=== PATIENT | female | born 1990 | race Caucasian/White ===

== ENCOUNTER 2016-07-30 16:02 | Outpatient (CLI) | payer MEDICAID ==
[~2016-07-30] VITALS: Ht 167.6 cm; Wt 110.0 kg
[~2016-07-30 16:02] MED LIST: ALLEGRA 60MG TA60 MG PO; DOXYCYCLINE 10100 MG PO; EPIPEN1 MG/ML MR; GOOD SENSE SLEE25 M1 PO; PHENERGAN 25 TA25 MG PO; PHENERGAN W/CO120 ML PO; PREDNISONE20 MG PO; PRENATAL MVI PO; PROBIOTIC FORMU1 CAP PO; TYLENOL W/COD1 UDTAB PO; VENTOLIN0.09 MG IH; VITAMIN B-6100 MG PO; ZYRTEC 10MG10 MG PO; ZYRTEC5 MG PO
[2016-07-30 16:12] VITALS: BP 141/73; PULSE 96; TEMP 98.1
[2016-07-30 17:03] LABS: PH 6 (5-8); URINE APPEARANCE Hazy; URINE BACTERIA Rare /hpf; URINE BILIRUBIN Negative (NEGATIVE); URINE BLOOD Negative (NEGATIVE); URINE COLOR Yellow; URINE GLUCOSE Negative (NEGATIVE); URINE KETONE Negative (NEGATIVE); URINE UROBILINOGEN Negative (NEGATIVE)
[2016-07-30 17:10] VITALS: BP 119/67; PULSE 96
[2016-07-30 17:45] VITALS: BP 119/59; PULSE 90
== END 2016-07-30 18:42 | disposition home or self-care (01) ==
LOC: LDRO 16:02
PROVIDERS: Obstetrics & Gynecology
DX: O26.92 Pregnancy related conditions, unspecified, second trimester (principal); M54.5 Low back pain; Z3A.26 26 weeks gestation of pregnancy
CPT/HCPCS: J2550; J7120

== ENCOUNTER → 2016-08-07 | Outpatient (CLI) | payer OTHER ==
[~2016-08-07] MED LIST changes: +IBU600 MG PO; +PERCOCET 325 MG1 TA2 PO; +TYLENOL 500MG500 MG PO
== END ==
LOC: COL.RAD 13:15
DX: M79.671 Pain in right foot (principal)

== ENCOUNTER → 2016-08-21 | Outpatient (CLI) | payer OTHER | LOC: COL.RAD 11:00 | DX: M79.671 Pain in right foot (principal) ==

== ENCOUNTER 2016-09-02 09:29 | Emergency (ER) | payer MEDICAID ==
[~2016-09-02] VITALS: Ht 167.6 cm; Wt 109.1 kg
[~2016-09-02 09:29] MED LIST changes: -IBU600 MG PO; -PERCOCET 325 MG1 TA2 PO; -TYLENOL 500MG500 MG PO
[2016-09-02 09:32] VITALS: TEMP 98
[2016-09-02 10:35] LABS: PH 7 (5-8); SQUAMOUS EPITHELIAL 0-2 /hpf; URINE APPEARANCE Clear; URINE BACTERIA Rare /hpf; URINE BILIRUBIN Negative (NEGATIVE); URINE BLOOD Negative (NEGATIVE); URINE COLOR Straw; URINE GLUCOSE Negative (NEGATIVE); URINE KETONE Negative (NEGATIVE); URINE RBC 0-2 /hpf; URINE UROBILINOGEN Negative (NEGATIVE); URINE WBC 0-2 /hpf
[2016-09-02 11:33] VITALS: BP 102/57; PULSE 90
== END 2016-09-02 11:33 | disposition home or self-care (01) ==
LOC: COL.ER 09:29
PROVIDERS: Physician Assistant
DX: O99.89 Other specified diseases and conditions complicating pregnancy, childbirth and the puerperium (principal); S39.012A Strain of muscle, fascia and tendon of lower back, initial encounter; M79.671 Pain in right foot; G89.29 Other chronic pain; Z3A.31 31 weeks gestation of pregnancy; W01.198A Fall on same level from slipping, tripping and stumbling with subsequent striking against other object, initial encounter; Y92.238 Other place in hospital as the place of occurrence of the external cause

== ENCOUNTER 2016-10-19 23:29 | Outpatient (CLI) | payer BC, MEDICAID ==
[~2016-10-19] VITALS: Ht 167.6 cm; Wt 120.5 kg
[2016-10-19 23:59] VITALS: BP 128/73; PULSE 88; TEMP 97.5
[2016-10-20] VITALS: BP 128/73; PULSE 88; TEMP 97.5
[2016-10-20] MEDS ORDERED: TYLENOL 500MG500 MG PO (00:06)
== END 2016-10-20 00:47 | disposition home or self-care (01) ==
LOC: LDRO 23:29
DX: Z03.71 Encounter for suspected problem with amniotic cavity and membrane ruled out (principal)

== ENCOUNTER 2016-10-21 00:08 | Outpatient (CLI) | payer MEDICAID ==
[~2016-10-21] VITALS: Ht 167.6 cm; Wt 120.9 kg
[~2016-10-21 00:08] MED LIST changes: +TYLENOL 500MG500 MG PO
[2016-10-21 00:38] VITALS: BP 122/64; PULSE 90; TEMP 97.7
[2016-10-21 01:00] VITALS: BP 122/64; PULSE 90; TEMP 97.7
[2016-10-21 02:30] VITALS: BP 114/66; PULSE 84
== END 2016-10-21 03:06 | disposition home or self-care (01) ==
LOC: LDRO 00:08
DX: O47.1 False labor at or after 37 completed weeks of gestation (principal); Z3A.38 38 weeks gestation of pregnancy

== ENCOUNTER 2016-10-22 07:53 | Outpatient (CLI) | payer MEDICAID ==
[~2016-10-22] VITALS: Ht 167.6 cm; Wt 120.0 kg
[2016-10-22 08:07] VITALS: BP 115/67; PULSE 105; TEMP 97.4
== END 2016-10-22 09:30 | disposition home or self-care (01) ==
LOC: LDRO 07:53
DX: O47.9 False labor, unspecified (principal)

== ENCOUNTER 2016-10-28 07:00 | Inpatient (IN) | payer BC, MEDICAID ==
[2016-10-28] VITALS (60 sets, daily range): BP systolic 97–137; BP diastolic 43–86; PULSE 65–103; TEMP 97.6–98.6
[~2016-10-28] VITALS: Ht 165.1 cm; Wt 119.1 kg
[2016-10-28 08:18] LABS: BASO % 0.3 % (0.0-2.0); EOS # 0.2 (0.0-0.7); GRAN # 5.8 (1.4-6.5); GRAN % 65.3 % (42.2-75.2); HEMATOCRIT 39.7 % (37.0-47.0); HEMOGLOBIN 13.8 g/dl (12.5-16.0); LYMPH % 22.5 % (20.0-51.0); MEAN CELL VOLUME 90 fl (80.0-100.0); MEAN CORPUSCULAR HEMOGLOBIN 31 pg (27.0-31.0); MEAN CORPUSCULAR HGB CONC 35 g/dl (33.0-37.0); MEAN PLATELET VOLUME 9.6 fl (7.4-10.4); MONO # 0.8 (0.1-0.6); MONO % 9.3 % (1.7-9.3); PLATELET COUNT 230 K/mm3 (130-400); RED BLOOD COUNT 4.42 M/mm3 (4.10-5.30); REDCELL DISTRIBUTION WIDTH-CV 12.6 % (11.5-14.5); WHITE BLOOD COUNT 8.8 K/mm3 (4.8-10.8)
[2016-10-29 03:45] VITALS: BP 118/53; PULSE 76; TEMP 98.1
[2016-10-29 08:30] VITALS: BP 97/43; PULSE 83; TEMP 98.1
[2016-10-29 11:03] LABS: BASO % 0.4 % (0.0-2.0); EOS # 0.1 (0.0-0.7); EOS % 1.3 % (0-4.0); GRAN # 7.2 (1.4-6.5); GRAN % 70.2 % (42.2-75.2); LYMPH # 2.2 (1.2-3.4); LYMPH % 21.3 % (20.0-51.0); MEAN CELL VOLUME 92 fl (80.0-100.0); MEAN CORPUSCULAR HGB CONC 34 g/dl (33.0-37.0); MEAN PLATELET VOLUME 9.4 fl (7.4-10.4); MONO # 0.6 (0.1-0.6); MONO % 6.2 % (1.7-9.3); PLATELET COUNT 186 K/mm3 (130-400); REDCELL DISTRIBUTION WIDTH-CV 12.9 % (11.5-14.5); WHITE BLOOD COUNT 10.2 K/mm3 (4.8-10.8)
[2016-10-29 11:16] LABS: HEMATOCRIT 32.2 % (37.0-47.0); MEAN CORPUSCULAR HEMOGLOBIN 31 pg (27.0-31.0)
[2016-10-29 16:00] VITALS: BP 107/63; PULSE 87; TEMP 98.1
[2016-10-29 22:28] VITALS: BP 119/65; PULSE 98; TEMP 98.2
[2016-10-30 08:50] VITALS: BP 104/56; PULSE 83; TEMP 97.9
[2016-10-30] MEDS ORDERED: IBU600 MG PO (09:37)
[2016-10-30] MEDS ORDERED: PERCOCET 325 MG1 TA2 PO (09:37)
[2016-10-30 17:00] VITALS: BP 119/62; PULSE 89; TEMP 98
[2016-10-30 21:00] VITALS: BP 113/54; PULSE 90; TEMP 98.2
[2016-10-31 07:15] VITALS: BP 128/63; PULSE 77; TEMP 98
== END 2016-10-31 13:30 | disposition home or self-care (01) | DRG 766 ==
LOC: OB 07:00 → LDR 07:00 → OB 20:54
PROVIDERS: Obstetrics & Gynecology
PROC: 10D00Z1 Extraction of Products of Conception, Low, Open Approach (ICD-10-PCS; principal; 2016-10-28)
PROC: 3E033VJ Introduction of Other Hormone into Peripheral Vein, Percutaneous Approach (ICD-10-PCS; 2016-10-28)
DX: O36.63X0 Maternal care for excessive fetal growth, third trimester, not applicable or unspecified (principal); O76 Abnormality in fetal heart rate and rhythm complicating labor and delivery; O69.81X0 Labor and delivery complicated by cord around neck, without compression, not applicable or unspecified; O62.0 Primary inadequate contractions; O99.824 Streptococcus B carrier state complicating childbirth; Z3A.39 39 weeks gestation of pregnancy; Z37.0 Single live birth
CPT/HCPCS: J0690; J1885; J2270; J2405; J2590; J7120

== ENCOUNTER 2017-09-15 15:47 | Emergency (ER) | payer BC ==
[~2017-09-15] VITALS: Ht 165.1 cm; Wt 104.5 kg
[~2017-09-15 15:47] MED LIST changes: +IBU600 MG PO; +PERCOCET 325 MG1 TA2 PO
[2017-09-15 15:52] VITALS: BP 139/77; TEMP 99.2
[2017-09-15 18:12] VITALS: PULSE 96
== END 2017-09-15 18:13 | disposition home or self-care (01) ==
LOC: COL.ER 15:47
DX: J06.9 Acute upper respiratory infection, unspecified (principal); Z90.89 Acquired absence of other organs; Z88.0 Allergy status to penicillin; Z88.2 Allergy status to sulfonamides

== ENCOUNTER 2017-11-05 19:16 | Emergency (ER) | payer BC ==
[~2017-11-05] VITALS: Ht 165.1 cm; Wt 104.5 kg
[2017-11-05 19:28] VITALS: TEMP 98.1
[2017-11-05 20:22] LABS: COLLECTION METHOD CLEAN CATCH
[2017-11-05 20:28] LABS: PH 6 (5-8); URINE APPEARANCE Clear; URINE BACTERIA Rare /hpf; URINE BILIRUBIN Negative (NEGATIVE); URINE BLOOD 3+ (NEGATIVE); URINE COLOR Straw; URINE GLUCOSE Negative (NEGATIVE); URINE KETONE Negative (NEGATIVE); URINE LEUKOCYTE ESTERASE Negative (NEGATIVE); URINE NITRATE Negative (NEGATIVE); URINE PROTEIN(semi-quant) Negative (NEGATIVE); URINE RBC 0-2 /hpf; URINE UROBILINOGEN Negative (NEGATIVE)
[2017-11-05 20:33] LABS: HEMATOCRIT 41.5 % (37.0-47.0); HEMOGLOBIN 14.4 g/dl (12.5-16.0); MEAN CELL VOLUME 85 fl (80.0-100.0); MEAN CORPUSCULAR HEMOGLOBIN 29 pg (27.0-31.0); MEAN CORPUSCULAR HGB CONC 35 g/dl (33.0-37.0); MEAN PLATELET VOLUME 8.3 fl (7.4-10.4); PLATELET COUNT 197 K/mm3 (130-400); RED BLOOD COUNT 4.91 M/mm3 (4.10-5.30)
[2017-11-05 20:49] LABS: ALBUMIN 3.7 gm/dL (3.5-5.0); BILIRUBIN,TOTAL 0.4 mg/dL (0.0-1.0); C-REACTIVE PROTEIN 1.7 mg/dL (0.0-0.9); CALCIUM 8.1 mg/dL (8.4-10.2); CREATININE, serum 0.6 mg/dL (0.52-1.25); POTASSIUM 3.9 mmol/L (3.4-5.0); TOTAL PROTEIN 7.6 gm/dL (6.4-8.2)
[2017-11-05 21:00] LABS: BAND 5 % (0-10); BASOPHIL 1 % (0-2); EOSINOPHIL 2 % (0-4); LYMPHOCYTE 23 % (20.0-51.0); NEUTROPHILS 65 % (42.0-75.2)
[2017-11-05 21:01] LABS: PLATELET ESTIMATE NORMAL (NORMAL)
[2017-11-05] MEDS ORDERED: NORCO 325 MG-51 TAB PO (21:30)
[2017-11-05 21:41] VITALS: BP 104/64; PULSE 84
== END 2017-11-05 21:46 | disposition home or self-care (01) ==
LOC: COL.ER 19:16
PROVIDERS: Emergency Medicine
DX: N94.6 Dysmenorrhea, unspecified (principal); Z98.51 Tubal ligation status; Z90.89 Acquired absence of other organs; Z98.890 Other specified postprocedural states
CPT/HCPCS: J1885; J7030

== ENCOUNTER 2018-02-08 20:19 | Emergency (ER) | payer BC, MEDICAID ==
[~2018-02-08] VITALS: Ht 162.6 cm; Wt 100.0 kg
[~2018-02-08 20:19] MED LIST changes: +NORCO 325 MG-51 TAB PO
[2018-02-08 20:22] VITALS: TEMP 98.4
[2018-02-08 22:02] LABS: BASO # 0.1 (0.0-0.2); BASO % 0.6 % (0.0-2.0); EOS # 0.4 (0.0-0.7); EOS % 2.9 % (0-4.0); GRAN # 9.4 (1.4-6.5); GRAN % 75.7 % (42.2-75.2); HEMATOCRIT 41.7 % (37.0-47.0); HEMOGLOBIN 14.4 g/dl (12.5-16.0); LYMPH # 1.8 (1.2-3.4); LYMPH % 14.2 % (20.0-51.0); MEAN CELL VOLUME 86 fl (80.0-100.0); MEAN CORPUSCULAR HEMOGLOBIN 30 pg (27.0-31.0); MEAN CORPUSCULAR HGB CONC 35 g/dl (33.0-37.0); MONO # 0.8 (0.1-0.6); MONO % 6.3 % (1.7-9.3); PLATELET COUNT 263 K/mm3 (130-400); RED BLOOD COUNT 4.86 M/mm3 (4.10-5.30); REDCELL DISTRIBUTION WIDTH-CV 12.7 % (11.5-14.5)
[2018-02-08 22:45] LABS: COLLECTION METHOD CLEAN CATCH
[2018-02-08 22:50] LABS: PH 8 (5-8); SQUAMOUS EPITHELIAL 0-2 /hpf; URINE APPEARANCE Clear; URINE BACTERIA Rare /hpf; URINE BILIRUBIN Negative (NEGATIVE); URINE BLOOD Negative (NEGATIVE); URINE COLOR Yellow; URINE GLUCOSE Negative (NEGATIVE); URINE KETONE 2+ (NEGATIVE); URINE LEUKOCYTE ESTERASE Negative (NEGATIVE); URINE NITRATE Negative (NEGATIVE); URINE PROTEIN(semi-quant) Negative (NEGATIVE); URINE RBC 0-2 /hpf; URINE UROBILINOGEN Negative (NEGATIVE)
[2018-02-08 22:55] LABS: BILIRUBIN,TOTAL 0.5 mg/dL (0.0-1.0); CALCIUM 9.1 mg/dL (8.4-10.2); CREATININE, serum 0.67 mg/dL (0.52-1.25); POTASSIUM 3.5 mmol/L (3.4-5.0); TOTAL PROTEIN 7.5 gm/dL (6.4-8.2)
[2018-02-09 00:36] VITALS: BP 118/68; PULSE 83
== END 2018-02-09 00:34 | disposition home or self-care (01) ==
LOC: COL.ER 20:19
PROVIDERS: Emergency Medicine; Nurse Practitioner Primary Care
DX: J06.9 Acute upper respiratory infection, unspecified (principal); Z90.89 Acquired absence of other organs; Z98.890 Other specified postprocedural states
CPT/HCPCS: J1885; J7030

== ENCOUNTER 2018-05-16 14:59 | Emergency (ER) | payer BC, MEDICAID ==
[~2018-05-16] VITALS: Ht 162.6 cm; Wt 106.8 kg
[2018-05-16 15:05] VITALS: BP 110/57; TEMP 97.7
[2018-05-16 16:32] VITALS: PULSE 82
== END 2018-05-16 16:32 | disposition home or self-care (01) ==
LOC: COL.ER 14:59
DX: M54.2 Cervicalgia (principal); M54.6 Pain in thoracic spine; Z88.0 Allergy status to penicillin; Z90.89 Acquired absence of other organs; Z88.2 Allergy status to sulfonamides; Z88.1 Allergy status to other antibiotic agents; Z98.890 Other specified postprocedural states
CPT/HCPCS: J1885; J2360

== ENCOUNTER 2018-06-09 18:45 | Emergency (ER) | payer BC, MEDICAID ==
[~2018-06-09] VITALS: Ht 165.1 cm; Wt 104.5 kg
[2018-06-09 19:18] VITALS: BP 124/63; TEMP 98.4
[2018-06-09 20:25] LABS: COLLECTION METHOD CLEAN CATCH
[2018-06-09 20:29] LABS: BASO # 0.1 (0.0-0.2); BASO % 0.7 % (0.0-2.0); EOS # 0.7 (0.0-0.7); EOS % 6.4 % (0-4.0); GRAN # 6.1 (1.4-6.5); GRAN % 56.9 % (42.2-75.2); HEMATOCRIT 40.5 % (37.0-47.0); HEMOGLOBIN 13.9 g/dl (12.5-16.0); LYMPH # 3.1 (1.2-3.4); LYMPH % 29.2 % (20.0-51.0); MEAN CELL VOLUME 87 fl (80.0-100.0); MEAN CORPUSCULAR HEMOGLOBIN 30 pg (27.0-31.0); MEAN CORPUSCULAR HGB CONC 34 g/dl (33.0-37.0); MEAN PLATELET VOLUME 8.8 fl (7.4-10.4); MONO # 0.7 (0.1-0.6); MONO % 6.6 % (1.7-9.3); PLATELET COUNT 280 K/mm3 (130-400); RED BLOOD COUNT 4.68 M/mm3 (4.10-5.30); REDCELL DISTRIBUTION WIDTH-CV 12.4 % (11.5-14.5)
[2018-06-09 20:32] LABS: MUCOUS Present /lpf; PH 6 (5-8); SQUAMOUS EPITHELIAL 0-2 /hpf; URINE APPEARANCE Clear; URINE BACTERIA None Seen /hpf; URINE BILIRUBIN Negative (NEGATIVE); URINE BLOOD 3+ (NEGATIVE); URINE COLOR Yellow; URINE GLUCOSE Negative (NEGATIVE); URINE KETONE Negative (NEGATIVE); URINE LEUKOCYTE ESTERASE Negative (NEGATIVE); URINE NITRATE Negative (NEGATIVE); URINE PROTEIN(semi-quant) Negative (NEGATIVE); URINE RBC 20-50 /hpf; URINE UROBILINOGEN Negative (NEGATIVE)
[2018-06-09 20:41] LABS: ALBUMIN 3.8 gm/dL (3.5-5.0); BILIRUBIN,TOTAL 0.3 mg/dL (0.0-1.0); CREATININE, serum 0.57 mg/dL (0.52-1.25); POTASSIUM 4.1 mmol/L (3.4-5.0); TOTAL PROTEIN 7.1 gm/dL (6.4-8.2)
[2018-06-09 21:45] VITALS: PULSE 101
== END 2018-06-09 21:45 | disposition home or self-care (01) ==
LOC: COL.ER 18:45
PROVIDERS: Family Medicine
DX: B34.9 Viral infection, unspecified (principal)
CPT/HCPCS: J2405; J7030

== ENCOUNTER 2018-07-27 16:19 | Emergency (ER) | payer BC, MEDICAID ==
[~2018-07-27] VITALS: Ht 165.1 cm; Wt 106.4 kg
[2018-07-27 16:27] VITALS: PULSE 95; TEMP 97.9
[2018-07-27] MEDS ORDERED: ZYRTEC5 MG (17:13)
[2018-07-27 17:34] LABS: BASO # 0.1 (0.0-0.2); BASO % 0.5 % (0.0-2.0); EOS # 0.6 (0.0-0.7); EOS % 5.9 % (0-4.0); GRAN % 70.7 % (42.2-75.2); HEMATOCRIT 39.9 % (37.0-47.0); HEMOGLOBIN 13.6 g/dl (12.5-16.0); LYMPH # 1.6 (1.2-3.4); LYMPH % 15.8 % (20.0-51.0); MEAN CELL VOLUME 87 fl (80.0-100.0); MEAN CORPUSCULAR HEMOGLOBIN 30 pg (27.0-31.0); MEAN CORPUSCULAR HGB CONC 34 g/dl (33.0-37.0); MEAN PLATELET VOLUME 9.6 fl (7.4-10.4); MONO # 0.7 (0.1-0.6); MONO % 6.7 % (1.7-9.3); PLATELET COUNT 241 K/mm3 (130-400); RED BLOOD COUNT 4.58 M/mm3 (4.10-5.30); REDCELL DISTRIBUTION WIDTH-CV 12.8 % (11.5-14.5)
[2018-07-27 18:19] LABS: ALBUMIN 3.9 gm/dL (3.5-5.0); BILIRUBIN,TOTAL 0.3 mg/dL (0.0-1.0); C-REACTIVE PROTEIN 0.7 mg/dL (0.0-0.9); CALCIUM 8.6 mg/dL (8.4-10.2); CREATININE, serum 0.58 mg/dL (0.52-1.25); POTASSIUM 3.7 mmol/L (3.4-5.0); TOTAL PROTEIN 7.1 gm/dL (6.4-8.2)
[2018-07-27] MEDS ORDERED: ZOFRAN ODT4 MG PO (18:36)
[2018-07-27] MEDS ORDERED: NORCO 325 MG-51 TAB PO (18:36)
[2018-07-27 19:15] VITALS: BP 94/63
== END 2018-07-27 19:15 | disposition home or self-care (01) ==
LOC: COL.ER 16:19
PROVIDERS: Emergency Medicine
DX: R10.84 Generalized abdominal pain (principal); R11.0 Nausea; Z90.89 Acquired absence of other organs; Z98.890 Other specified postprocedural states
CPT/HCPCS: J2405; J7030

== ENCOUNTER 2019-02-12 13:52 | Emergency (ER) | payer MEDICAID ==
[~2019-02-12] VITALS: Ht 167.6 cm; Wt 114.1 kg
[~2019-02-12 13:52] MED LIST changes: +ZOFRAN ODT4 MG PO; +ZYRTEC5 MG
[2019-02-12 14:27] VITALS: BP 133/84; TEMP 97.7
[2019-02-12 16:29] LABS: BASO # 0.1 (0.0-0.2); BASO % 0.6 % (0.0-2.0); EOS # 0.6 (0.0-0.7); EOS % 5.1 % (0-4.0); GRAN % 71.1 % (42.2-75.2); HEMATOCRIT 43.3 % (37.0-47.0); HEMOGLOBIN 14.8 g/dl (12.5-16.0); LYMPH # 1.9 (1.2-3.4); LYMPH % 17.1 % (20.0-51.0); MEAN CELL VOLUME 88 fl (80.0-100.0); MEAN CORPUSCULAR HEMOGLOBIN 30 pg (27.0-31.0); MEAN CORPUSCULAR HGB CONC 34 g/dl (33.0-37.0); MEAN PLATELET VOLUME 8.8 fl (7.4-10.4); MONO # 0.6 (0.1-0.6); MONO % 5.7 % (1.7-9.3); PLATELET COUNT 264 K/mm3 (130-400)
[2019-02-12 16:39] LABS: ALBUMIN 4.1 gm/dL (3.5-5.0); BILIRUBIN,TOTAL 0.4 mg/dL (0.0-1.0); CALCIUM 9.1 mg/dL (8.4-10.2); CREATININE, serum 0.61 (0.52-1.25); POTASSIUM 3.9 mmol/L (3.4-5.0); TOTAL PROTEIN 7.7 gm/dL (6.4-8.2)
[2019-02-12 16:54] LABS: COLLECTION METHOD CLEAN CATCH
[2019-02-12 16:59] LABS: MUCOUS Present /lpf; PH 5 (5-8); URINE APPEARANCE Clear; URINE BACTERIA None Seen /hpf; URINE BILIRUBIN Negative (NEGATIVE); URINE BLOOD Negative (NEGATIVE); URINE COLOR Yellow; URINE GLUCOSE Negative (NEGATIVE); URINE KETONE Negative (NEGATIVE); URINE LEUKOCYTE ESTERASE Negative (NEGATIVE); URINE NITRATE Negative (NEGATIVE); URINE PROTEIN(semi-quant) Negative (NEGATIVE); URINE RBC 0-2 /hpf; URINE UROBILINOGEN Negative (NEGATIVE)
[2019-02-12] MEDS ORDERED: ZOFRAN 4MG T4 MG/TAB PO (18:03)
[2019-02-12 18:31] VITALS: PULSE 80
== END 2019-02-12 18:32 | disposition home or self-care (01) ==
LOC: COL.ER 13:52
PROVIDERS: Physician Assistant
DX: O21.9 Vomiting of pregnancy, unspecified (principal); O99.281 Endocrine, nutritional and metabolic diseases complicating pregnancy, first trimester; E86.0 Dehydration; Z3A.01 Less than 8 weeks gestation of pregnancy
CPT/HCPCS: J2405; J7030

== ENCOUNTER 2019-02-16 00:18 | Emergency (ER) | payer MEDICAID ==
[~2019-02-16] VITALS: Ht 167.6 cm; Wt 113.6 kg
[~2019-02-16 00:18] MED LIST changes: +ZOFRAN 4MG T4 MG/TAB PO
[2019-02-16 00:21] VITALS: BP 121/70; TEMP 97.6
[2019-02-16 00:57] LABS: BASO # 0.1 (0.0-0.2); BASO % 0.6 % (0.0-2.0); EOS # 0.6 (0.0-0.7); EOS % 5.5 % (0-4.0); GRAN # 7.9 (1.4-6.5); GRAN % 68.7 % (42.2-75.2); HEMATOCRIT 42.1 % (37.0-47.0); HEMOGLOBIN 14.3 g/dl (12.5-16.0); LYMPH # 2.1 (1.2-3.4); LYMPH % 18.4 % (20.0-51.0); MEAN CELL VOLUME 89 fl (80.0-100.0); MEAN CORPUSCULAR HEMOGLOBIN 30 pg (27.0-31.0); MEAN CORPUSCULAR HGB CONC 34 g/dl (33.0-37.0); MEAN PLATELET VOLUME 8.9 fl (7.4-10.4); MONO # 0.7 (0.1-0.6); MONO % 6.3 % (1.7-9.3); PLATELET COUNT 265 K/mm3 (130-400); RED BLOOD COUNT 4.72 M/mm3 (4.10-5.30); REDCELL DISTRIBUTION WIDTH-CV 12.9 % (11.5-14.5)
[2019-02-16 01:11] LABS: ALANINE AMINOTRANSFERASE < 6 U/L (9-52); ALBUMIN 4.3 gm/dL (3.5-5.0); ALKALINE PHOSPHATASE 49 U/L (50-136); ANION GAP 12 mmol/L (7-16); AST,SGOT 19 U/L (15-37); BILIRUBIN,TOTAL 0.2 mg/dL (0.0-1.0); BLOOD UREA NITROGEN 10 mg/dL (7-17); CALCIUM 9.3 mg/dL (8.4-10.2); CARBON DIOXIDE 25 mmol/L (22-30); CHLORIDE 101 mmol/L (98-107); CREATININE, serum 0.59 (0.52-1.25); GLUCOSE 75 mg/dL (74-106); POTASSIUM 3.7 mmol/L (3.4-5.0); SODIUM 138 mmol/L (137-145)
[2019-02-16 01:30] LABS: COLLECTION METHOD CLEAN CATCH
[2019-02-16] MEDS ORDERED: PEPCID 20MG TAB20 MG PO (01:30)
[2019-02-16] MEDS ORDERED: PHENERGAN 25 TA25 MG PO (01:30)
[2019-02-16 01:35] LABS: PH 6 (5-8); SQUAMOUS EPITHELIAL 0-2 /hpf; URINE APPEARANCE Clear; URINE BACTERIA None Seen /hpf; URINE BILIRUBIN Negative (NEGATIVE); URINE BLOOD Negative (NEGATIVE); URINE COLOR Straw; URINE GLUCOSE Negative (NEGATIVE); URINE KETONE Negative (NEGATIVE); URINE LEUKOCYTE ESTERASE Negative (NEGATIVE); URINE NITRATE Negative (NEGATIVE); URINE PROTEIN(semi-quant) Negative (NEGATIVE); URINE RBC 0-2 /hpf; URINE UROBILINOGEN Negative (NEGATIVE)
[2019-02-16 02:19] LABS: HCG,QUANTITATIVE 86973 mIU/mL (0-5)
[2019-02-16 02:34] VITALS: PULSE 77
[2019-02-17] MEDS ORDERED: BONJESTA ER 201 EACH PO (13:44)
[2019-02-17] MEDS ORDERED: PHENERGAN25 MG RC (16:07)
== END 2019-02-16 02:34 | disposition home or self-care (01) ==
LOC: COL.ER 00:18
PROVIDERS: Emergency Medicine
DX: O99.611 Diseases of the digestive system complicating pregnancy, first trimester (principal); K21.9 Gastro-esophageal reflux disease without esophagitis; O21.9 Vomiting of pregnancy, unspecified; Z90.49 Acquired absence of other specified parts of digestive tract; Z3A.08 8 weeks gestation of pregnancy
CPT/HCPCS: J2550; J7030

== ENCOUNTER 2019-02-17 13:18 | Emergency (ER) | payer MEDICAID ==
[~2019-02-17] VITALS: Ht 167.6 cm; Wt 113.6 kg
[~2019-02-17 13:18] MED LIST changes: +PEPCID 20MG TAB20 MG PO
[2019-02-17 13:28] VITALS: BP 137/76; TEMP 97.3
[2019-02-17] MEDS ORDERED: BONJESTA ER 201 EACH PO (13:44)
[2019-02-17 14:43] LABS: COLLECTION METHOD CLEAN CATCH
[2019-02-17 15:09] LABS: URINE BACTERIA Rare /hpf; URINE RBC 0-2 /hpf
[2019-02-17 15:16] LABS: MUCOUS Present /lpf; PH 9 (5-8); URINE APPEARANCE Clear; URINE BILIRUBIN Negative (NEGATIVE); URINE BLOOD Negative (NEGATIVE); URINE COLOR Yellow; URINE GLUCOSE Negative (NEGATIVE); URINE KETONE 1+ (NEGATIVE); URINE LEUKOCYTE ESTERASE Negative (NEGATIVE); URINE NITRATE Negative (NEGATIVE); URINE PROTEIN(semi-quant) Negative (NEGATIVE); URINE UROBILINOGEN Negative (NEGATIVE)
[2019-02-17] MEDS ORDERED: PHENERGAN25 MG RC (16:07)
[2019-02-17 16:39] VITALS: PULSE 74
== END 2019-02-17 16:31 | disposition home or self-care (01) ==
LOC: COL.ER 13:18
PROVIDERS: Physician Assistant
DX: O21.0 Mild hyperemesis gravidarum (principal); Z3A.08 8 weeks gestation of pregnancy; Z90.89 Acquired absence of other organs
CPT/HCPCS: J2405; J7030

== ENCOUNTER 2019-02-20 23:53 | Emergency (ER) | payer MEDICAID ==
[~2019-02-20] VITALS: Ht 167.6 cm; Wt 113.6 kg
[~2019-02-20 23:53] MED LIST changes: +BONJESTA ER 201 EACH PO; +PHENERGAN25 MG RC
[2019-02-21 00:35] LABS: BASO % 0.4 % (0.0-2.0); EOS # 0.1 (0.0-0.7); EOS % 0.4 % (0-4.0); GRAN # 9.8 (1.4-6.5); GRAN % 87.3 % (42.2-75.2); HEMATOCRIT 41.8 % (37.0-47.0); HEMOGLOBIN 14.5 g/dl (12.5-16.0); LYMPH # 0.7 (1.2-3.4); LYMPH % 6.4 % (20.0-51.0); MEAN CELL VOLUME 88 fl (80.0-100.0); MEAN CORPUSCULAR HEMOGLOBIN 31 pg (27.0-31.0); MEAN CORPUSCULAR HGB CONC 35 g/dl (33.0-37.0); MONO # 0.6 (0.1-0.6); MONO % 5.1 % (1.7-9.3); PLATELET COUNT 216 K/mm3 (130-400); RED BLOOD COUNT 4.76 M/mm3 (4.10-5.30); REDCELL DISTRIBUTION WIDTH-CV 12.7 % (11.5-14.5)
[2019-02-21 00:49] LABS: ALANINE AMINOTRANSFERASE < 6 U/L (9-52); ALBUMIN 3.9 gm/dL (3.5-5.0); ALKALINE PHOSPHATASE 44 U/L (50-136); ANION GAP 10 mmol/L (7-16); AST,SGOT 18 U/L (15-37); BILIRUBIN,TOTAL 0.3 mg/dL (0.0-1.0); BLOOD UREA NITROGEN 9 mg/dL (7-17); C-REACTIVE PROTEIN 2.8 mg/dL (0.0-0.9); CALCIUM 8.9 mg/dL (8.4-10.2); CARBON DIOXIDE 22 mmol/L (22-30); CHLORIDE 103 mmol/L (98-107); CREATININE, serum 0.55 (0.52-1.25); GLUCOSE 109 mg/dL (74-106); LIPASE 46 U/L (23-300); POTASSIUM 3.8 mmol/L (3.4-5.0); SODIUM 135 mmol/L (137-145); TOTAL PROTEIN 7.2 gm/dL (6.4-8.2)
[2019-02-21 01:20] LABS: COLLECTION METHOD CLEAN CATCH
[2019-02-21 01:25] LABS: PH 6 (5-8); SQUAMOUS EPITHELIAL 0-2 /hpf; URINE APPEARANCE Clear; URINE BACTERIA Rare /hpf; URINE BILIRUBIN Negative (NEGATIVE); URINE BLOOD Negative (NEGATIVE); URINE COLOR Yellow; URINE GLUCOSE Negative (NEGATIVE); URINE KETONE Negative (NEGATIVE); URINE LEUKOCYTE ESTERASE Negative (NEGATIVE); URINE NITRATE Negative (NEGATIVE); URINE PROTEIN(semi-quant) Negative (NEGATIVE); URINE RBC 0-2 /hpf; URINE UROBILINOGEN Negative (NEGATIVE)
[2019-02-21] MEDS ORDERED: MACRODANTIN100 PO (01:46)
[2019-02-21 02:02] VITALS: BP 121/53; PULSE 91; TEMP 98.2
== END 2019-02-21 02:42 | disposition home or self-care (01) ==
LOC: COL.ER 23:53
PROVIDERS: Emergency Medicine
DX: O21.0 Mild hyperemesis gravidarum (principal); O23.41 Unspecified infection of urinary tract in pregnancy, first trimester; R82.71 Bacteriuria; B96.89 Other specified bacterial agents as the cause of diseases classified elsewhere; Z98.890 Other specified postprocedural states; Z90.89 Acquired absence of other organs; Z3A.09 9 weeks gestation of pregnancy
CPT/HCPCS: J2405; J2765; J7030

== ENCOUNTER 2019-04-15 23:05 | Emergency (ER) | payer MEDICAID ==
[~2019-04-15] VITALS: Ht 165.1 cm; Wt 114.1 kg
[~2019-04-15 23:05] MED LIST changes: +MACRODANTIN100 PO
[2019-04-15 23:21] VITALS: TEMP 97.7
[2019-04-16 00:06] LABS: COLLECTION METHOD CLEAN CATCH
[2019-04-16 00:10] LABS: BASO # 0.1 (0.0-0.2); BASO % 0.5 % (0.0-2.0); EOS # 0.5 (0.0-0.7); EOS % 4.5 % (0-4.0); GRAN % 65.5 % (42.2-75.2); HEMATOCRIT 38.3 % (37.0-47.0); HEMOGLOBIN 13.3 g/dl (12.5-16.0); LYMPH # 2.4 (1.2-3.4); LYMPH % 22.6 % (20.0-51.0); MEAN CELL VOLUME 89 fl (80.0-100.0); MEAN CORPUSCULAR HEMOGLOBIN 31 pg (27.0-31.0); MEAN CORPUSCULAR HGB CONC 35 g/dl (33.0-37.0); MEAN PLATELET VOLUME 8.8 fl (7.4-10.4); MONO # 0.7 (0.1-0.6); MONO % 6.5 % (1.7-9.3); PLATELET COUNT 205 K/mm3 (130-400); REDCELL DISTRIBUTION WIDTH-CV 13.2 % (11.5-14.5)
[2019-04-16 00:17] LABS: MUCOUS Present /lpf; PH 5 (5-8); SQUAMOUS EPITHELIAL 0-2 /hpf; URINE APPEARANCE Clear; URINE BACTERIA Rare /hpf; URINE BILIRUBIN Negative (NEGATIVE); URINE BLOOD Negative (NEGATIVE); URINE COLOR Yellow; URINE GLUCOSE Negative (NEGATIVE); URINE KETONE Negative (NEGATIVE); URINE LEUKOCYTE ESTERASE Negative (NEGATIVE); URINE NITRATE Negative (NEGATIVE); URINE PROTEIN(semi-quant) Negative (NEGATIVE); URINE RBC 0-2 /hpf; URINE UROBILINOGEN Negative (NEGATIVE)
[2019-04-16 00:26] LABS: ALANINE AMINOTRANSFERASE 8 U/L (9-52); ALBUMIN 3.7 gm/dL (3.5-5.0); ALKALINE PHOSPHATASE 44 U/L (50-136); ANION GAP 9 mmol/L (7-16); AST,SGOT 17 U/L (15-37); BILIRUBIN,TOTAL < 0.1 mg/dL (0.0-1.0); BLOOD UREA NITROGEN 10 mg/dL (7-17); C-REACTIVE PROTEIN 1.9 mg/dL (0.0-0.9); CALCIUM 8.8 mg/dL (8.4-10.2); CARBON DIOXIDE 23 mmol/L (22-30); CHLORIDE 103 mmol/L (98-107); CREATININE, serum 0.47 (0.52-1.25); GLUCOSE 87 mg/dL (74-106); POTASSIUM 3.5 mmol/L (3.4-5.0); SODIUM 135 mmol/L (137-145); TOTAL PROTEIN 6.7 gm/dL (6.4-8.2)
[2019-04-16] MEDS ORDERED: MACROBID 1100 MG/CAP PO (03:10)
[2019-04-16 03:55] VITALS: BP 97/59; PULSE 79
== END 2019-04-16 03:54 | disposition home or self-care (01) ==
LOC: COL.ER 23:05
PROVIDERS: Emergency Medicine
DX: R10.31 Right lower quadrant pain (principal); R10.2 Pelvic and perineal pain
CPT/HCPCS: J1200; J2405; J2765; J7030

== ENCOUNTER 2019-05-01 16:58 | Emergency (ER) | payer MEDICAID ==
[~2019-05-01] VITALS: Ht 165.1 cm; Wt 113.2 kg
[~2019-05-01 16:58] MED LIST changes: +MACROBID 1100 MG/CAP PO
[2019-05-01 17:07] VITALS: TEMP 97.8
[2019-05-01] MEDS ORDERED: PRENATAL MVI PO (17:26)
[2019-05-01] MEDS ORDERED: FLONASEALLERGY NS (17:27)
[2019-05-01 17:43] LABS: COLLECTION METHOD CLEAN CATCH
[2019-05-01 17:48] LABS: MUCOUS Present /lpf; PH 5 (5-8); SQUAMOUS EPITHELIAL 0-2 /hpf; URINE APPEARANCE Clear; URINE BACTERIA Rare /hpf; URINE BILIRUBIN Negative (NEGATIVE); URINE BLOOD Negative (NEGATIVE); URINE COLOR Yellow; URINE GLUCOSE Negative (NEGATIVE); URINE KETONE Negative (NEGATIVE); URINE LEUKOCYTE ESTERASE Negative (NEGATIVE); URINE NITRATE Negative (NEGATIVE); URINE PROTEIN(semi-quant) Negative (NEGATIVE); URINE RBC 0-2 /hpf; URINE UROBILINOGEN Negative (NEGATIVE)
[2019-05-01 18:15] VITALS: BP 121/71; PULSE 78
== END 2019-05-01 18:15 | disposition home or self-care (01) ==
LOC: COL.ER 16:58
PROVIDERS: Family Medicine
DX: O26.852 Spotting complicating pregnancy, second trimester (principal); Z3A.18 18 weeks gestation of pregnancy

== ENCOUNTER 2019-07-31 22:21 | Emergency (ER) | payer MEDICAID ==
[~2019-07-31] VITALS: Ht 167.6 cm; Wt 117.7 kg
[~2019-07-31 22:21] MED LIST changes: +FLONASEALLERGY NS
[2019-07-31 23:24] VITALS: BP 108/59; TEMP 97.6
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
[2019-08-01 00:51] VITALS: PULSE 88
== END 2019-08-01 00:51 | disposition home or self-care (01) ==
LOC: COL.ER 22:21 → EDSTATUS 22:29 → COL.ER 08-01 00:51
DX: M79.604 Pain in right leg (principal); Z98.890 Other specified postprocedural states; Z90.89 Acquired absence of other organs

== ENCOUNTER → 2019-08-01 | Outpatient (CLI) | payer MEDICAID | LOC: COL.RAD 10:50 | DX: Z13.6 Encounter for screening for cardiovascular disorders (principal); M79.89 Other specified soft tissue disorders ==

== ENCOUNTER 2019-08-26 21:25 | Outpatient (CLI) | payer MEDICAID ==
[~2019-08-26] VITALS: Ht 167.6 cm; Wt 122.3 kg
--- NOTE | 2019-08-26 21:40 | NUR ---
G2L1. 34-5. Wheeled to LDR 4 with spouse and daughter. Clean gown on. EFM and TOCO explained and applied. Pt states around 2029 she felt nauseous so she went to bathroom to try and vomit but she was not able to. Pt then started having irregular contractions and started feeling dizzy/lightheaded. Pt states contractions are irregular but has not timed them, last contraction was in the car. Pt denies leaking of fluids or vaginal bleeding. Reports good movement. SVE FT/-2. VS and assessment completed. 2156: updated on pt status. See physican notification. Plan of care explained to pt and pt verbalizes understanding. 2209: IV started and LR bolus infusing without difficulties. Call light within reach. Pt encouraged to drink plenty of fluids as well.
[2019-08-26 21:49] VITALS: BP 120/71; PULSE 99; TEMP 97.5
[2019-08-26] MEDS ORDERED: ZYRTEC 10MG10 MG PO (21:51)
[2019-08-26 22:30] VITALS: BP 108/66; PULSE 96
--- NOTE | 2019-08-26 23:00 | NUR ---
LR COMPLETED AND IV TO INT. SVE UNCHANGED. PT STATES SHE IS FEELING MUCH BETTER SINCE GIVEN FLUIDS AND DENIES CONTRACTIONS, DIZZINESS OR LIGHTHEADED. 2310: DISCHARGE INSTRUCTIONS GIVEN TO PT AND DENIES QUESTIONS. PT AMBULATORY OFF UNIT AND HOME WITH FAMILY.
[2019-08-26 23:02] VITALS: BP 105/52; PULSE 88; TEMP 97.4
== END 2019-08-26 23:10 | disposition home or self-care (01) ==
LOC: LDRO 21:25
DX: O62.9 Abnormality of forces of labor, unspecified (principal); O99.89 Other specified diseases and conditions complicating pregnancy, childbirth and the puerperium; R42 Dizziness and giddiness; Z3A.34 34 weeks gestation of pregnancy
CPT/HCPCS: J7120

== ENCOUNTER 2019-10-01 05:48 | Inpatient (IN) | payer MEDICAID ==
[2019-10-01] VITALS (19 sets, daily range): BP systolic 98–124; BP diastolic 44–85; PULSE 73–97; TEMP 97–98.2
[~2019-10-01] VITALS: Ht 165.1 cm; Wt 126.4 kg
--- NOTE | 2019-10-01 05:45 | NUR ---
0545- PT PRESENTS TO LDR FOR SCHEDULED C/S. AMBULATORY TO ROOM 213 ACCOMPANIED BY FAMILY. CHANGED INTO GOWN. 0600- IV START TO LEFT HAND WITH 18G, SPECIMEN DRAWN FOR LAB, LR INFUSING.
[2019-10-01 06:36] LABS: BASO # 0.1 (0.0-0.2); BASO % 0.6 % (0.0-2.0); EOS # 0.4 (0.0-0.7); EOS % 3.5 % (0-4.0); GRAN # 6.9 (1.4-6.5); GRAN % 68.8 % (42.2-75.2); HEMATOCRIT 40.5 % (37.0-47.0); HEMOGLOBIN 13.9 g/dl (12.5-16.0); LYMPH # 1.8 (1.2-3.4); LYMPH % 17.9 % (20.0-51.0); MEAN CELL VOLUME 91 fl (80.0-100.0); MEAN CORPUSCULAR HEMOGLOBIN 31 pg (27.0-31.0); MEAN CORPUSCULAR HGB CONC 34 g/dl (33.0-37.0); MONO # 0.8 (0.1-0.6); MONO % 8.2 % (1.7-9.3); PLATELET COUNT 224 K/mm3 (130-400); RED BLOOD COUNT 4.43 M/mm3 (4.10-5.30); REDCELL DISTRIBUTION WIDTH-CV 13.2 % (11.5-14.5)
--- NOTE | 2019-10-01 10:30 | NUR ---
1030- ABD binder on.
[2019-10-02] VITALS: BP 103/50; PULSE 81
[2019-10-02 07:43] VITALS: BP 143/87; PULSE 87; TEMP 97.5
--- NOTE | 2019-10-02 12:58 | NUR ---
stopped by but patient was busy with new child.
[2019-10-02 16:00] VITALS: BP 110/58; PULSE 87; TEMP 98
[2019-10-02 20:00] VITALS: BP 117/48; PULSE 97; TEMP 98
[2019-10-03 07:04] VITALS: BP 114/66; PULSE 76; TEMP 98.1
[2019-10-03] MEDS ORDERED: MOTRIN 800800 MG/TAB PO (08:38)
[2019-10-03] MEDS ORDERED: PERCOCET 325 MG1 TA2 PO (08:38)
== END 2019-10-03 13:30 | disposition home or self-care (01) | DRG 788 ==
LOC: OB
PROVIDERS: ADMIT Obstetrics & Gynecology
PROC: 10D00Z1 Extraction of Products of Conception, Low, Open Approach (ICD-10-PCS; principal; 2019-10-01)
DX: O34.211 Maternal care for low transverse scar from previous cesarean delivery (principal); O99.214 Obesity complicating childbirth; E66.9 Obesity, unspecified; O77.0 Labor and delivery complicated by meconium in amniotic fluid; O99.824 Streptococcus B carrier state complicating childbirth; Z3A.39 39 weeks gestation of pregnancy; Z37.0 Single live birth
CPT/HCPCS: J0690; J1885; J2270; J2370; J2405; J2590; J2765; J7120

== ENCOUNTER → 2020-02-25 | Outpatient (CLI) | payer MEDICAID ==
[~2020-02-25] MED LIST changes: +MOTRIN 800800 MG/TAB PO
== END ==
LOC: COL.RAD 02-17 13:15
DX: M25.371 Other instability, right ankle (principal)

== ENCOUNTER 2020-04-17 20:33 | Emergency (ER) | payer MEDICAID ==
[~2020-04-17] VITALS: Ht 167.6 cm; Wt 118.2 kg
[2020-04-17 20:46] VITALS: BP 110/73; PULSE 80; TEMP 97.1
== END 2020-04-17 21:10 | disposition left against medical advice (07) ==
LOC: COL.ER 20:33
DX: S99.912A Unspecified injury of left ankle, initial encounter (principal); S99.911A Unspecified injury of right ankle, initial encounter; Z53.29 Procedure and treatment not carried out because of patient's decision for other reasons; W10.8XXA Fall (on) (from) other stairs and steps, initial encounter

== ENCOUNTER 2020-11-29 20:51 | Emergency (ER) | payer MEDICAID ==
[~2020-11-29] VITALS: Ht 165.1 cm; Wt 118.2 kg
[2020-11-29 21:19] VITALS: TEMP 98.5
[2020-11-29 22:41] VITALS: BP 129/76; PULSE 84
== END 2020-11-29 22:45 | disposition home or self-care (01) ==
LOC: COL.ER 20:51
DX: M25.532 Pain in left wrist (principal); Z88.0 Allergy status to penicillin; Z88.1 Allergy status to other antibiotic agents; Z88.2 Allergy status to sulfonamides

== ENCOUNTER 2020-12-28 23:14 | Emergency (ER) | payer MEDICAID ==
[~2020-12-28] VITALS: Ht 167.6 cm; Wt 118.2 kg
[2020-12-28 23:20] VITALS: TEMP 97.2
[2020-12-28 23:50] LABS: BASO # 0.1 (0.0-0.2); BASO % 0.5 % (0.0-2.0); EOS # 0.5 (0.0-0.7); EOS % 4.5 % (0-4.0); GRAN # 7.6 (1.4-6.5); GRAN % 66.3 % (42.2-75.2); HEMATOCRIT 41.9 % (37.0-47.0); HEMOGLOBIN 14.1 g/dl (12.5-16.0); LYMPH # 2.5 (1.2-3.4); MEAN CELL VOLUME 89 fl (80.0-100.0); MEAN CORPUSCULAR HEMOGLOBIN 30 pg (27.0-31.0); MEAN CORPUSCULAR HGB CONC 34 g/dl (33.0-37.0); MONO # 0.7 (0.1-0.6); MONO % 6.4 % (1.7-9.3); PLATELET COUNT 275 K/mm3 (130-400); RED BLOOD COUNT 4.69 M/mm3 (4.10-5.30); REDCELL DISTRIBUTION WIDTH-CV 13.2 % (11.5-14.5)
[2020-12-29 00:06] LABS: ALBUMIN 4.3 gm/dL (3.5-5.0); BILIRUBIN,TOTAL 0.4 mg/dL (0.0-1.0); CALCIUM 9.3 mg/dL (8.4-10.2); CREATININE, serum 0.49 (0.52-1.25); POTASSIUM 3.8 mmol/L (3.4-5.0)
[2020-12-29] MEDS ORDERED: PHENERGAN 25 TA25 MG PO (00:10)
[2020-12-29 00:26] LABS: COLLECTION METHOD CLEAN CATCH
[2020-12-29 00:31] LABS: MUCOUS Present /lpf; PH 6 (5-8); SQUAMOUS EPITHELIAL 0-2 /hpf; URINE APPEARANCE Clear; URINE BACTERIA Rare /hpf; URINE BILIRUBIN Negative (NEGATIVE); URINE BLOOD Negative (NEGATIVE); URINE COLOR Straw; URINE GLUCOSE Negative (NEGATIVE); URINE KETONE Negative (NEGATIVE); URINE LEUKOCYTE ESTERASE Negative (NEGATIVE); URINE NITRATE Negative (NEGATIVE); URINE PROTEIN(semi-quant) Negative (NEGATIVE); URINE RBC 0-2 /hpf; URINE UROBILINOGEN Negative (NEGATIVE)
[2020-12-29 02:00] VITALS: BP 148/70; PULSE 78
== END 2020-12-29 02:00 | disposition home or self-care (01) ==
LOC: COL.ER 23:14
PROVIDERS: Emergency Medicine
DX: O21.9 Vomiting of pregnancy, unspecified (principal); Z3A.00 Weeks of gestation of pregnancy not specified
CPT/HCPCS: J2550; J7030

== ENCOUNTER 2021-01-08 17:57 | Emergency (ER) | payer MEDICAID ==
[~2021-01-08] VITALS: Ht 167.6 cm; Wt 115.9 kg
[2021-01-08 18:11] VITALS: TEMP 98.3
[2021-01-08 18:48] LABS: BASO # 0.1 (0.0-0.2); BASO % 0.5 % (0.0-2.0); EOS # 0.4 (0.0-0.7); EOS % 3.8 % (0-4.0); GRAN # 7.7 (1.4-6.5); GRAN % 71.8 % (42.2-75.2); HEMATOCRIT 40.3 % (37.0-47.0); HEMOGLOBIN 13.5 g/dl (12.5-16.0); LYMPH # 1.8 (1.2-3.4); LYMPH % 17.1 % (20.0-51.0); MEAN CELL VOLUME 88 fl (80.0-100.0); MEAN CORPUSCULAR HEMOGLOBIN 30 pg (27.0-31.0); MEAN CORPUSCULAR HGB CONC 34 g/dl (33.0-37.0); MEAN PLATELET VOLUME 8.8 fl (7.4-10.4); MONO # 0.7 (0.1-0.6); MONO % 6.4 % (1.7-9.3); PLATELET COUNT 260 K/mm3 (130-400); RED BLOOD COUNT 4.56 M/mm3 (4.10-5.30)
[2021-01-08 18:55] LABS: COLLECTION METHOD CLEAN CATCH
[2021-01-08 18:58] LABS: ALBUMIN 4.1 gm/dL (3.5-5.0); BILIRUBIN,TOTAL 0.3 mg/dL (0.0-1.0); CALCIUM 9.3 mg/dL (8.4-10.2); CREATININE, serum 0.59 (0.52-1.25); TOTAL PROTEIN 7.4 gm/dL (6.4-8.2)
[2021-01-08 19:03] LABS: PH 5 (5-8); SQUAMOUS EPITHELIAL 0-2 /hpf; URINE APPEARANCE Clear; URINE BACTERIA None Seen /hpf; URINE BILIRUBIN Negative (NEGATIVE); URINE BLOOD Negative (NEGATIVE); URINE COLOR Yellow; URINE GLUCOSE Negative (NEGATIVE); URINE KETONE Trace (NEGATIVE); URINE LEUKOCYTE ESTERASE Negative (NEGATIVE); URINE NITRATE Negative (NEGATIVE); URINE PROTEIN(semi-quant) Negative (NEGATIVE); URINE RBC None Seen /hpf; URINE UROBILINOGEN Negative (NEGATIVE)
[2021-01-08] MEDS ORDERED: PHENERGAN 25 TA25 MG PO (20:09)
[2021-01-08 20:39] VITALS: BP 117/67; PULSE 75
== END 2021-01-08 21:20 | disposition home or self-care (01) ==
LOC: COL.ER 17:57
PROVIDERS: Nurse Practitioner Family
DX: O21.9 Vomiting of pregnancy, unspecified (principal); O99.281 Endocrine, nutritional and metabolic diseases complicating pregnancy, first trimester; E86.0 Dehydration; O26.891 Other specified pregnancy related conditions, first trimester; R10.31 Right lower quadrant pain; Z90.89 Acquired absence of other organs; Z3A.01 Less than 8 weeks gestation of pregnancy
CPT/HCPCS: J2550; J7030

== ENCOUNTER 2021-01-14 01:36 | Emergency (ER) | payer MEDICAID ==
[~2021-01-14] VITALS: Ht 167.6 cm; Wt 118.2 kg
[2021-01-14 01:45] VITALS: TEMP 98.2
[2021-01-14 02:04] LABS: BASO # 0.1 (0.0-0.2); BASO % 0.6 % (0.0-2.0); EOS # 0.3 (0.0-0.7); EOS % 3.2 % (0-4.0); GRAN # 7.3 (1.4-6.5); GRAN % 70.1 % (42.2-75.2); HEMATOCRIT 40.7 % (37.0-47.0); LYMPH % 19.2 % (20.0-51.0); MEAN CELL VOLUME 87 fl (80.0-100.0); MEAN CORPUSCULAR HEMOGLOBIN 30 pg (27.0-31.0); MEAN CORPUSCULAR HGB CONC 34 g/dl (33.0-37.0); MEAN PLATELET VOLUME 9.5 fl (7.4-10.4); MONO # 0.7 (0.1-0.6); MONO % 6.5 % (1.7-9.3); PLATELET COUNT 258 K/mm3 (130-400); RED BLOOD COUNT 4.68 M/mm3 (4.10-5.30); REDCELL DISTRIBUTION WIDTH-CV 13.1 % (11.5-14.5)
[2021-01-14 03:24] LABS: ALBUMIN 3.8 gm/dL (3.5-5.0); BILIRUBIN,TOTAL 0.3 mg/dL (0.0-1.0); CALCIUM 9.1 mg/dL (8.4-10.2); CREATININE, serum 0.49 (0.52-1.25); POTASSIUM 3.3 mmol/L (3.4-5.0); TOTAL PROTEIN 7.1 gm/dL (6.4-8.2)
[2021-01-14 03:42] LABS: COLLECTION METHOD CLEAN CATCH
[2021-01-14 03:47] LABS: MUCOUS Present /lpf; PH 6 (5-8); SQUAMOUS EPITHELIAL 0-2 /hpf; URINE APPEARANCE Clear; URINE BACTERIA None Seen /hpf; URINE BILIRUBIN Negative (NEGATIVE); URINE BLOOD 1+ (NEGATIVE); URINE COLOR Yellow; URINE GLUCOSE Negative (NEGATIVE); URINE KETONE 1+ (NEGATIVE); URINE LEUKOCYTE ESTERASE Trace (NEGATIVE); URINE NITRATE Negative (NEGATIVE); URINE PROTEIN(semi-quant) Negative (NEGATIVE); URINE RBC 0-2 /hpf; URINE UROBILINOGEN Negative (NEGATIVE); URINE WBC 0-2 /hpf
[2021-01-14] MEDS ORDERED: PRENATAL 19 CH1 EACH PO (06:06)
[2021-01-14] MEDS ORDERED: REGLAN 10MG10 MG/TAB PO (06:06)
[2021-01-14 07:00] VITALS: BP 114/75; PULSE 86
== END 2021-01-14 07:04 | disposition home or self-care (01) ==
LOC: COL.ER 01:36
PROVIDERS: Emergency Medicine
DX: O21.9 Vomiting of pregnancy, unspecified (principal); O99.281 Endocrine, nutritional and metabolic diseases complicating pregnancy, first trimester; E86.0 Dehydration; Z3A.09 9 weeks gestation of pregnancy
CPT/HCPCS: J2765; J7030

== ENCOUNTER 2021-02-13 18:27 | Emergency (ER) | payer MEDICAID ==
[~2021-02-13] VITALS: Ht 167.6 cm; Wt 108.6 kg
[~2021-02-13 18:27] MED LIST changes: +PRENATAL 19 CH1 EACH PO; +REGLAN 10MG10 MG/TAB PO
[2021-02-13 18:32] VITALS: TEMP 97.3
[2021-02-13 20:06] LABS: BASO % 0.3 % (0.0-2.0); EOS # 0.2 (0.0-0.7); EOS % 2.3 % (0-4.0); GRAN % 68.2 % (42.2-75.2); HEMATOCRIT 40.5 % (37.0-47.0); HEMOGLOBIN 13.8 g/dl (12.5-16.0); LYMPH # 1.9 (1.2-3.4); LYMPH % 21.7 % (20.0-51.0); MEAN CELL VOLUME 88 fl (80.0-100.0); MEAN CORPUSCULAR HEMOGLOBIN 30 pg (27.0-31.0); MEAN CORPUSCULAR HGB CONC 34 g/dl (33.0-37.0); MEAN PLATELET VOLUME 9.7 fl (7.4-10.4); MONO # 0.6 (0.1-0.6); MONO % 7.2 % (1.7-9.3); PLATELET COUNT 217 K/mm3 (130-400)
[2021-02-13 20:09] LABS: ALBUMIN 3.7 gm/dL (3.5-5.0); BILIRUBIN,TOTAL 0.2 mg/dL (0.0-1.0); CALCIUM 9.4 mg/dL (8.4-10.2); CREATININE, serum 0.47 (0.52-1.25); POTASSIUM 3.7 mmol/L (3.4-5.0); TOTAL PROTEIN 7.1 gm/dL (6.4-8.2)
[2021-02-13 20:58] LABS: COLLECTION METHOD CLEAN CATCH
[2021-02-13 21:11] LABS: MUCOUS Present /lpf; PH 5 (5-8); SQUAMOUS EPITHELIAL 0-2 /hpf; URINE APPEARANCE Clear; URINE BACTERIA Rare /hpf; URINE BILIRUBIN Negative (NEGATIVE); URINE BLOOD 1+ (NEGATIVE); URINE COLOR Yellow; URINE GLUCOSE Negative (NEGATIVE); URINE KETONE Trace (NEGATIVE); URINE LEUKOCYTE ESTERASE 2+ (NEGATIVE); URINE NITRATE Negative (NEGATIVE); URINE PROTEIN(semi-quant) Negative (NEGATIVE); URINE RBC 0-2 /hpf; URINE UROBILINOGEN Negative (NEGATIVE)
[2021-02-13] MEDS ORDERED: CEPHALEXIN500 M1 PO (21:47)
[2021-02-13] MEDS ORDERED: REGLAN 10MG10 MG/TAB PO (21:48)
[2021-02-13 22:24] VITALS: BP 122/84; PULSE 70
== END 2021-02-13 22:24 | disposition home or self-care (01) ==
LOC: COL.ER 18:27
PROVIDERS: Emergency Medicine
DX: O21.9 Vomiting of pregnancy, unspecified (principal); O23.91 Unspecified genitourinary tract infection in pregnancy, first trimester; R82.71 Bacteriuria; O26.891 Other specified pregnancy related conditions, first trimester; E86.0 Dehydration; Z88.1 Allergy status to other antibiotic agents; Z88.2 Allergy status to sulfonamides; Z3A.13 13 weeks gestation of pregnancy
CPT/HCPCS: J2765; J7030

== ENCOUNTER 2021-05-17 00:06 | Emergency (ER) | payer MEDICAID ==
[~2021-05-17 00:06] MED LIST changes: +CEPHALEXIN500 M1 PO
== END 2021-05-17 00:40 | disposition left against medical advice (07) ==
LOC: COL.ER 00:06
DX: R69 Illness, unspecified (principal)

== ENCOUNTER 2021-07-12 18:25 | Outpatient (CLI) | payer MEDICAID ==
[~2021-07-12] VITALS: Ht 167.6 cm; Wt 109.1 kg
--- NOTE | 2021-07-12 18:44 | NUR ---
PATIENT BROUGHT TO UNIT IN WHEELCHAIR AND SHOWN TO ROOM LDR4. THIS RN DISCUSSED PLAN OF CARE AND HELPED PT INTO GOWN. PT IS , C/S X2, PRESENTS COMPLAINING OF CTX Q 20-30 MIN. PT DENIES SROM, VAGINAL BLEEDING, OR DECREASED MOVEMENT.
[2021-07-12 19:30] VITALS: BP 109/59; PULSE 81; TEMP 97.8
--- NOTE | 2021-07-12 19:50 | NUR ---
PT RESTING ON PHONE, NO SIGNS OF DISTRESS. PT DENIES FEELING FURTHER CONTRACTIONS. PLAN OF CARE DISCUSSED AND PT VERBALIZED AN UNDERSTANDING. PT DENIES FURTHER NEEDS AT THIS TIME
[2021-07-12 20:00] VITALS: BP 113/59; PULSE 80
[2021-07-12 20:30] VITALS: PULSE 75
--- NOTE | 2021-07-12 20:30 | NUR ---
DISCHARGE INSTRUCTIONS REVIEWED WITH PATIENT, PT VERBALIZED AN UNDERSTANDING AND DENIES FURTHER QUESTIONS. PT GIVEN COPY OF DISCHARGE INSTRUCTIONS.
--- NOTE | 2021-07-12 20:36 | NUR ---
PT DISCHARGED TO HOME IN STABLE, UNDELIVERED CONDITION. PT AMBULATED OFF UNIT AT THIS TIME
== END 2021-07-12 20:36 | disposition home or self-care (01) ==
LOC: LDRO 18:25 → LDR 18:51 → LDRO 20:36
DX: O62.9 Abnormality of forces of labor, unspecified (principal); Z3A.34 34 weeks gestation of pregnancy
CPT/HCPCS: OP